=== PATIENT | male | born 1960 | race African-American/Black ===

== ENCOUNTER 2021-06-23 20:37 | Emergency (ER) | payer BC ==
[2021-06-23 20:50] VITALS: TEMP 97.7; BMI 26.4
[2021-06-23] MEDS ORDERED: NITROGLYCERIN SUBLINGUAL 1/150 0.4 MG TAB SL ONE (21:22)
[2021-06-23] MEDS ORDERED: ASPIRIN 325 MG TABLET PO ONE (21:22)
[2021-06-23] MEDS ORDERED: NITROGLYCERIN SUBLINGUAL 1/150 0.4 MG TAB ONE ×2 (21:23→21:24)
[2021-06-23] MEDS ORDERED: ASPIRIN 81 MG CHEWABLE TABLETS ONE (21:23)
[2021-06-23 21:35] LABS: HEMATOCRIT 36.6 % (35.4-49); HEMOGLOBIN 12.5 GM/dL (11.7-16.9); MCH 29.8 pg (25.7-33.7); MCHC 34.2 g/dl (32.0-35.9); MEAN CELL VOLUME 87.1 fl (80-96); MEAN PLT VOLUME 10.3 fl (7.5-11.1); PLATELET COUNT 123 10^3/uL (134-434); RDW 14.1 % (11.9-15.9); WHITE BLOOD COUNT 6.1 K/mm3 (4.0-10.0)
[2021-06-23 21:41] LABS: INR 0.9 (0.83-1.09)
[2021-06-23 21:44] LABS: ACTIVATED PTT 28.7 SECONDS (25.2-36.5)
[2021-06-23 21:53] LABS: CHLORIDE 111 mmol/L (98-107); SODIUM 142 mmol/L (136-145)
[2021-06-23 21:56] LABS: ANION GAP 8 MMOL/L (8-16); BLOOD UREA NITROGEN 71.7 mg/dL (7-18); CALCIUM 7.4 mg/dL (8.5-10.1); CO2 23 mmol/L (21-32); LIPASE 389 U/L (73-393); MAGNESIUM 2.2 mg/dL (1.8-2.4)
[2021-06-23 21:57] LABS: EPI CELLS 8 /uL (0-25.1); GLUCOSE,RANDOM 182 mg/dL (74-106); HYALINE CASTS 1 /uL (0-3.1); PH,URINE 5.5 (5.0-8.0); URINE APPEARANCE CLEAR; URINE BACTERIA 11 /uL (0-1359); URINE BILIRUBIN NEGATIVE (NEGATIVE); URINE COLOR YELLOW; URINE GLUCOSE (UA) TRACE (NEGATIVE); URINE KETONE NEGATIVE (NEGATIVE); URINE LEUK ESTERASE NEGATIVE (NEGATIVE); URINE NITRITE NEGATIVE (NEGATIVE); URINE PROTEIN 4+ (NEGATIVE); URINE RBC 44 /uL (0-23.9); URINE WBC 11 /uL (0-25.8)
[2021-06-23 21:59] LABS: CREATININE 4.7 mg/dL (0.55-1.3); SGOT/AST 70 U/L (15-37); SGPT/ALT 92 U/L (13-61)
[2021-06-23 22:01] LABS: BILIRUBIN,TOTAL 0.3 mg/dL (0.2-1); TOT PROT 6.6 g/dl (6.4-8.2)
[2021-06-23 22:02] LABS: ALK PHOS 266 U/L (45-117)
[2021-06-23 22:05] LABS: N-TERMINAL BNP 8180.5 pg/ml (5-125)
[2021-06-23 22:18] LABS: ANISOCYTOSIS 0; HELMET CELLS 0; HOWELL-JOLLY BODIES 0; MACROCYTOSIS 0; OVALOCYTE 0; PLATELET ESTIMATE DECREASED; ROULEAU 0; SICKELED CELLS 0; TARGET CELLS 0; TEAR DROP CELLS 0; TOXIC GRANULATION 0
[2021-06-23 22:41] VITALS: BP 205/116; PULSE 62
== END 2021-06-23 23:30 | disposition left against medical advice (07) ==
LOC: JER 20:37
DX: R07.9 Chest pain, unspecified (principal)
CPT/HCPCS: 36415; 71046-TC-FY; 80053; 81003; 82550; 82553; 82570; 83690; 83735; 83880; 84300; 84484; 85025; 85610; 85730; 87086; 93005; 93010; 99285-25; C9803; U0003; U0005

== ENCOUNTER 2022-11-27 08:43 | Emergency (ER) | payer BC ==
[2022-11-27 09:10] VITALS: TEMP 98; BMI 23.6
[2022-11-27] MEDS ORDERED: ACETAMINOPHEN 1000 MG/100 ML BAG IVPB ONE (10:05)
[2022-11-27] MEDS ORDERED: ASPIRIN 81 MG CHEWABLE TABLETS ONE (10:37)
[2022-11-27] MEDS ORDERED: HEPARIN NA (PORCINE) 5,000 UNITS/ML 1ML VIAL IVPUSH ONE (10:38)
[2022-11-27] MEDS ORDERED: ASPIRIN 325 MG TABLET PO ONE (10:38)
[2022-11-27] MEDS ORDERED: HEPARIN NA (PORCINE) 5,000 UNITS/ML 1ML VIAL IVPUSH PRN (10:43)
[2022-11-27] MEDS ORDERED: HEPARIN NA (PORCINE) 5,000 UNITS/ML 1ML VIAL ONE (10:44)
[2022-11-27] MEDS ORDERED: TICAGRELOR 60 MG TABLET PO SCH (10:45)
[2022-11-27] MEDS ORDERED: HEPARIN INFUSION - 25,000 UNITS/500 ML INFUS.BAG IVPB SCH (10:45)
[2022-11-27] MEDS ORDERED: HEPARIN INFUSION - 25,000 UNITS/500 ML INFUS.BAG IVPB ONE (11:03)
[2022-11-27 11:21] LABS: BASO % 0.3 % (0-2.0); EOS % 1.6 % (0-4.5); HEMATOCRIT 35.9 % (35.4-49); HEMOGLOBIN 12.3 GM/dL (11.7-16.9); MCHC 34.3 g/dl (32.0-35.9); MEAN CELL VOLUME 93.2 fl (80-96); MEAN PLT VOLUME 10.5 fl (7.5-11.1); MONO % 15.2 % (3.8-10.2); NEUT % 71.9 % (42.8-82.8); PLATELET COUNT 106 10^3/uL (134-434); RBC 3.85 M/mm3 (4.00-5.60); RDW 14.1 % (11.9-15.9); WHITE BLOOD COUNT 10.6 K/mm3 (4.0-10.0)
[2022-11-27 11:36] LABS: INR 1.06 (0.83-1.09); PROTHROMBIN TIME (PATIENT) 12.3 SEC (9.7-13.0)
[2022-11-27 11:39] LABS: ACTIVATED PTT 31.8 SECONDS (25.2-36.5)
[2022-11-27 11:46] LABS: CHLORIDE 96 mmol/L (98-107); SODIUM 131 mmol/L (136-145)
[2022-11-27 11:49] LABS: CALCIUM 8.1 mg/dL (8.5-10.1)
[2022-11-27 11:50] LABS: ALBUMIN 2.5 g/dl (3.4-5.0); ANION GAP 8 MMOL/L (8-16); BLOOD UREA NITROGEN 66.6 mg/dL (7-18); CO2 26 mmol/L (21-32); GLUCOSE,RANDOM 128 mg/dL (74-106); LIPASE 151 U/L (73-393); MAGNESIUM 2.2 mg/dL (1.8-2.4)
[2022-11-27 11:53] LABS: SGOT/AST 241 U/L (15-37); SGPT/ALT 79 U/L (13-61)
[2022-11-27 11:54] LABS: BILIRUBIN,TOTAL 1.2 mg/dL (0.2-1); TOT PROT 7.7 g/dl (6.4-8.2)
[2022-11-27 11:55] LABS: ALK PHOS 194 U/L (45-117)
[2022-11-27 11:56] LABS: CREATININE 7.8 mg/dL (0.55-1.3)
[2022-11-27 11:59] VITALS: BP 141/100; PULSE 79; RESP 20
== END 2022-11-27 11:45 | disposition short-term general hospital (02) ==
LOC: JER 08:43
DX: I21.3 ST elevation (STEMI) myocardial infarction of unspecified site (principal); Z20.822 Contact with and (suspected) exposure to COVID-19
CPT/HCPCS: 0241U-QW; 36415; 71045-TC-FY; 71046-TC-FY; 80053; 83605; 83690; 83735; 84484; 85025; 85610; 85730; 93005; 93010; 99291; J1644